=== PATIENT | female | born 1950 | race Caucasian/White ===

== ENCOUNTER 2016-10-14 06:38 | Day surgery (SDC) | payer MEDICARE, MEDICAID ==
[~2016-10-14 06:38] MED LIST: Buffered Lidocaine 1% SYRIN* 3 ML/SYR SYRINGE INTRADERM ONE; Sodium Citrate/Citric Acid* 15 ML UDC PO ONE
[2016-10-14] MEDS ORDERED: ceFAZolin 2 GM PREMIX(*) 2 GM/50 ML BAG IVPB ONE (06:48)
[2016-10-14] MEDS ORDERED: Sodium Citrate/Citric Acid* 15 ML UDC ONE (06:48)
[2016-10-14] MEDS ORDERED: Bupivacaine 0.25% SDV* 30 ML ONE (07:03)
[2016-10-14] MEDS ORDERED: Lidocaine 1% INJ* 10 MG/ML 30 ML SDV ONE (07:46)
[2016-10-14] MEDS ORDERED: Betamethasone INJ* 6 MG/ML 5 ML VIAL (30 MG) ONE (07:46)
[2016-10-14] MEDS ORDERED: fentaNYL* 50 MCG/ML 2 ML VIAL (100 MCG VIAL) ONE (07:54)
[2016-10-14] MEDS ORDERED: Lidocaine 2% PF * 5 ML VIAL ONE (07:55)
[2016-10-14] MEDS ORDERED: Propofol* 10 MG/ML 20 ML BTL IV PUSH ONE (07:55)
[2016-10-14] MEDS ORDERED: Ketorolac INJ* 30 MG/ML 1 ML VIAL IV PRN (08:24)
[2016-10-14] MEDS ORDERED: Ondansetron INJ* 2 MG/ML VIAL IV PRN (08:24)
[2016-10-14] MEDS ORDERED: fentaNYL* 50 MCG/ML 2 ML VIAL (100 MCG VIAL) IV PRN (08:24)
[2016-10-14] MEDS ORDERED: Ondansetron INJ* 2 MG/ML VIAL ONE (09:47)
[2016-10-14] MEDS ORDERED: Ketorolac INJ* 30 MG/ML 1 ML VIAL ONE (10:10)
[2016-10-14] MEDS ORDERED: DiMENhydriNATE IV* 50 MG/ML VIAL ONE (11:51)
[2016-10-14] MEDS ORDERED: DiMENhydriNATE IV* 50 MG/ML VIAL IV PUSH PRN (11:53)
[2016-10-14 12:50] VITALS: BP 151/79
--- NOTE | 2016-10-14 23:09 | OP ---
DATE OF OPERATION: 10/14/16 - [facility] DATE OF : 48 SURGEON: Segundo Gramajo MD DEVELOPMENTAL MATHEMATICS INSTRUCTOR: CHEYANNE Bay ANESTHESIOLOGIST: Dr. Steen. ANESTHESIA: General. PRE-OPERATIVE DIAGNOSES: 1. 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 2. Right middle, ring and small finger trigger fingers. POST-OPERATIVE DIAGNOSES: 1. 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 2. Right middle, ring and small finger trigger fingers. 3. Full thickness cartilage loss at the scaphotrapezoid joint. OPERATIVE PROCEDURE: 1. Left thumb carpometacarpal arthroplasty with trapeziectomy and split flexor carpi radialis distally based transfer for thumb suspension and tendon interposition at both the scaphotrapezoid joint as well as in the void left by the trapeziectomy. 2. Right middle, ring and small finger trigger finger injections. 3. Left partial trapezoidectomy. INDICATIONS: Ms. Palma is a 66-year-old female who has been having significant left thumb carpometacarpal degenerative joint disease and STT degenerative joint disease pain. She has had nonoperative treatment for quite some time. 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 She desired to have surgery. Recently, she has developed trigger fingers on the right side with mariam triggering at the middle and ring fingers and significant discomfort in the small finger as well. We talked about the risks and benefits. She wanted to proceed with surgical intervention. ESTIMATED BLOOD LOSS: 5 mL. COMPLICATIONS: As expected. FINDINGS: Full thickness cartilage loss of the distal pole of the scaphoid at the scaphotrapezoid articulation. DESCRIPTION OF PROCEDURE: Ms. Palma was seen in the preoperative holding area and the correct site, side and procedure were identified. We came back to the operating room, where anesthesia was induced and she received perioperative antibiotics. The arm was prepped and draped in the usual fashion and a formal timeout was performed. I began prior to draping by cleansing the right palm with alcohol. I then used a 25-gauge needle to inject 0.5 mL of 1% plain lidocaine and 3 mg of betamethasone at the A1 pulleys of the right middle, ring and small fingers. This was uneventful and a Band-Aid was applied. I began on the left by making a longitudinal incision from the base of the thumb metacarpal down towards the radial styloid. It was about a 2 to 3 cm incision. Staying just dorsal to the first dorsal compartment tendons, I raised full thickness flaps to preserve the dorsal sensory nerves of the radial nerve. The radial artery was identified. There was a branch that I ligated and tied off with a 4-0 silk tie. This enabled the rest of the radial artery to be mobilized and retracted proximally and dorsally out of the surgical field. There was quite a dense venous bed underneath the radial artery. This was cauterized with the Bovie. Once I had cauterized this, I used the knife to incise longitudinally the capsule of the scaphotrapezial and trapeziometacarpal joints. Full thickness capsule and subperiosteal flaps were raised volarly and dorsally. I used the [place] blade to release the soft tissue around the trapezium. I then used a rongeur to excise the trapezium in its entirety. With the trapezium excised, I was able to preserve the FCR tendon in the base of the wound. I had my visual merchandising assistant pull quite a bit of traction in the index finger and I put a freer elevator in the scaphotrapezoid joint. I elected for significant cartilage loss and there was indeed full thickness cartilage loss off the distal aspect of the scaphoid and scaphotrapezoid joint. Essentially, it was a bare scaphoid. I, at this point, brought in my osteotome and used the osteotome to excise the most proximal 3-mm trapezoid. This was taken down with one clean wafer of bone. After excising the piece of the trapezoid, I was not able to induce contact between the trapezoid and the distal hole of the scaphoid with axial loading of the index finger in flexion and extension. I then used my drill bits to make a hole from the dorsal radial aspect of the base of the metacarpal down and just at the articular edge of the volar ulnar metacarpal. I sequentially used larger drill bits to get up to the right side hole. Once I had done this, I irrigated out the wound, we turned our attention to the volar forearm. I made a small transverse incision over the distal aspect of the FCR tendon just proximal to the volar flexion crease. The tendon was freed up from the sheath and brought up into the wound where it was split longitudinally and a 26- gauge wire was split pass through the longitudinal split. I then made two more transverse incisions proximally, each about 7 or 8 cm proximal to the prior incision. I release the FCR tendon from its tendon sheath along the entire length of the tendon and freed up any adhesions using the tenotomy scissors. I then used a Shanna to the deliver the 26-gauge wire sequentially into the more proximal wounds until I released the FCR tendon at the musculotendinous junction. I delivered the free tendon tail down into the distal forearm wound. The end of the tendon was freed of any muscle remnants and I used a 3-0 Ethibond suture to secure the proximal aspect of the tendon tail to prevent splitting as I passed into the remaining wounds. With the free tendon tail secured, I used two 26-gauge wires to shuttle the tendon down into the base of the thumb wound through the remaining tendon sheath at the level of the wrist. I then used the wire as a shuttle to pass the free tendon tail up through my drill hole and then back around the intact limb of the FCR tendon. I then tensioned the tendon transfer and sutured the two ends of the intact tendon tail to the free tendon tail to secure the graft. I placed a couple more Ethibond sutures. I then took the remainder of the tendon tail and used the Ethibond suture to create a little tendinous mat, which I used as an interpretation between the scaphoid and the trapezoid. The remainder of the FCR tendon was rolled up and secured with 3-[address] as an interposition in the site of the trapeziectomy. Once I had the tendon interposition in place, it looked very nice and so I went ahead and irrigated out the wound. The flaps were closed with 3-0 Ethibond suture to achieve a watertight seal. I then irrigated out the wound and closed the skin and all the wounds with some 4-0 nylon suture in horizontal mattress fashion. 25 mL of 0.25% plain Marcaine were infiltrated along all the operative wounds and areas. I then dressed all the wounds with Xeroform, 4x4s, sterile Webril and thumb spica splint was placed. Tourniquet was deflated. The arm had been exsanguinated and the tourniquet inflated to 250 mmHg prior to making the first skin incision. The hand pinked up immediately. The patient was then woken up and taken to the recovery room in stable condition. [id number]/[facility] #: [id number] TUAN
== END 2016-10-14 12:51 | disposition home or self-care (01) ==
LOC: OREAST 06:38
PROVIDERS: ATTEND Orthopaedic Surgery Hand Surgery
DX: M18.12 Unilateral primary osteoarthritis of first carpometacarpal joint, left hand (principal); M65.331 Trigger finger, right middle finger; M65.341 Trigger finger, right ring finger; M65.351 Trigger finger, right little finger
CPT/HCPCS: A9270-GY; J0690; J0702; J1240; J1885; J2001; J2405; J2704; J3010

== ENCOUNTER 2017-03-24 08:47 | Day surgery (SDC) | payer MEDICARE ==
[~2017-03-24 08:47] MED LIST changes: +Buffered Lidocaine 0.9% SYRIN* 5 ML/SYR SYRINGE INTRADERM ONE; -Buffered Lidocaine 1% SYRIN* 3 ML/SYR SYRINGE INTRADERM ONE; +Dexamethasone IV* 4 MG/ML 1 ML (4 MG) IV SLOW PU ONE; +Famotidine IV* 10 MG/ML 2 ML (20 mg) IV ONE; -Sodium Citrate/Citric Acid* 15 ML UDC PO ONE
[2017-03-24] MEDS ORDERED: Dexamethasone IV* 4 MG/ML 1 ML (4 MG) ONE (10:04)
[2017-03-24] MEDS ORDERED: ceFAZolin 2 GM PREMIX (*) 2 GM/50 ML BAG IVPB ONE (10:04)
[2017-03-24] MEDS ORDERED: Famotidine IV* 10 MG/ML 2 ML (20 mg) ONE (10:05)
[2017-03-24] MEDS ORDERED: Buffered Lidocaine 0.9% SYRIN* 5 ML/SYR SYRINGE ONE (10:22)
[2017-03-24] MEDS ORDERED: Lidocaine 1% MPF wEPI 200,000* 30 ML SDV ONE (11:12)
[2017-03-24] MEDS ORDERED: Bupivacaine 0.25% SDV* 30 ML ONE (11:12)
[2017-03-24] MEDS ORDERED: Midazolam* 1 MG/ML 2 ML VIAL (2 MG) ONE ×2 (11:30→11:35)
[2017-03-24] MEDS ORDERED: Chloroprocaine 2%* 20 ML VIAL ONE (11:31)
[2017-03-24] MEDS ORDERED: PROCHLORPERAZINE INJ 5 MG/ML 2 ML VIAL IV PRN (12:08)
[2017-03-24] MEDS ORDERED: Ketorolac INJ* 30 MG/ML 1 ML VIAL IV PRN (12:08)
[2017-03-24] MEDS ORDERED: oxyCODONE TAB* 5 MG TAB PO PRN (12:08)
[2017-03-24] MEDS ORDERED: fentaNYL* 50 MCG/ML 2 ML VIAL (100 MCG VIAL) IV PRN (12:08)
[2017-03-24] MEDS ORDERED: HYDROcodone/ACETAMIN 5-325 MG* 1 TAB PO PRN (12:08)
[2017-03-24] MEDS ORDERED: Acetaminophen TAB* 325 MG PO PRN (12:08)
[2017-03-24] MEDS ORDERED: Ondansetron INJ* 2 MG/ML VIAL IV PRN (12:08)
[2017-03-24 13:54] VITALS: BP 148/93
[2017-03-24] MEDS ORDERED: Acetaminophen TAB* 325 MG ONE (14:06)
[2017-03-24] MEDS ORDERED: Ibuprofen TAB* 600 MG ONE (14:12)
--- NOTE | 2017-03-25 05:58 | OP ---
DATE OF OPERATION: 03/24/17 - [facility] DATE OF : 48 ATTENDING SURGEON: Sita Vasques MD. DESIGN AND SALES CONSULTANT: CHEYANNE Huber. An paralegal assistant was needed for the entirety of the case to help with positioning and retraction, and was utilized throughout all portions of the case. ANESTHESIOLOGIST: Dr. Campos Alvarado. ANESTHESIA: Spinal anesthesia with local MAC. PRE-OP DIAGNOSIS: Left knee grade 3 ACL rupture with medial and lateral meniscal tears. POST-OP DIAGNOSES: 1. Left knee grade 3 ACL rupture with medial and lateral meniscal tears. 2. Mild chondrosis of the patella and medial femoral condyle. OPERATIVE PROCEDURE: 1. Left knee arthroscopy with partial medial meniscectomy. 2. Partial lateral meniscectomy. 3. Plica excision. 4. Chondroplasty. COMPLICATIONS: None. ESTIMATED BLOOD LOSS: Minimal. INDICATIONS: Brittny Palma is a 67-year-old female who sustained an injury to her knee initially in July and then again in February when she experienced catching and locking-type of pain. She was diagnosed with an ACL rupture and medial and lateral meniscal tears. After extensive discussions, risks, and benefits of operative versus nonoperative treatment, she has elected to proceed with operative treatment. Risks and benefits were discussed at length that included, but not limited to bleeding, infection, damage to nerves, vessels, surrounding structures, wound nonhealing, persistent pain, need for surgery, scarring, stiffness, incomplete relief of symptoms, risks of anesthesia , and risk of DVT. She has elected to proceed. DESCRIPTION OF PROCEDURE: The patient was greeted in the preoperative area by the attending surgeon. Correct extremity was marked, consent was confirmed. The patient was brought back to the operating suite where she was placed in a supine position on the operating room table. She underwent spinal anesthesia after which she was appropriately positioned in the bed. A nonsterile tourniquet was placed proximally on the left leg. The lateral post was positioned. The left leg was prepped and draped in the usual sterile fashion with chlorhexidine soap, alcohol wipe, and a final prep of ChloraPrep. After appropriate surgical pause, indicating site, side, position, and administration of antibiotics, the knee was intra-articularly injected with 1% lidocaine with epi. The left anterolateral portal was made sharply with the 11 blade. The scope was positioned in the suprapatellar pouch of the knee. The patellofemoral joint had grade 0 changes. The medial and lateral gutter were without loose body or debris. There was abundant synovitis. There was evidence of chondral wear from the anteromedial portion of the medial femoral condyle. There was also a plica present which was likely causing this irritation. There was a flipped portion of the body of the medial meniscus into the medial femoral condyle. She likely had been weightbearing on this piece. This appeared to be a [id number]-lnic tear. This had a large bulbous end and was in the white white zone. The anterior medial portal was made with an 18-gauge needle for localization. The probe was brought into the joint and the flap was examined. The eyal and biters were used to debride this flap back to a stable layer. The weightbearing portions of the medial femoral condyle and medial tibial plateau had grade 0-1 changes. There was erythema and chondral fraying about the medial edge of the medial femoral condyle. This was debrided back using the shaver. Once the chondroplasty was completed, attention was directed to the notch. She had a grade 3 rupture of the ACL with scarring of the tibial stump to the PCL. The lateral compartment was examined. She had an unstable tear of the posterior aspect of the lateral meniscus. There is bony degeneration present. This was not a repairable tear. This was debrided back using eyal and biters to stable area. There were grade 1 and 2 changes of the lateral femoral condyle. Finally, attention was directed to the medial plica. This is to be back using eyal and biters as well as electrocautery device. Final images were obtained. The knee was thoroughly lavaged and irrigated. The portals were lavaged with sterile saline. The portals were then closed with 3-0 nylon in interrupted fashion. Sterile dressings were applied. The knee was injected with 0.25% Marcaine plain. A Cryo/Cuff was applied. Postoperative plan: She will be on crutches for 3-5 days. She will have range of motion as tolerated. She will be weightbearing as tolerated. Shell be discharged on pain medication. DVT prophylaxis was considered but deferred due to her previous personal or family history. I will see the patient back in 10- 14 days. [id number]/[facility] #: [id number] TUAN
== END 2017-03-24 14:29 | disposition home or self-care (01) ==
LOC: OREAST 08:47
PROVIDERS: ATTEND Orthopaedic Surgery
DX: S83.512A Sprain of anterior cruciate ligament of left knee, initial encounter (principal); S83.282A Other tear of lateral meniscus, current injury, left knee, initial encounter; S83.232A Complex tear of medial meniscus, current injury, left knee, initial encounter; M22.2X2 Patellofemoral disorders, left knee; X58.XXXA Exposure to other specified factors, initial encounter; M65.862 Other synovitis and tenosynovitis, left lower leg; M67.52 Plica syndrome, left knee
CPT/HCPCS: A9270-GY; J0690; J1100; J2001; J2250; J2400

== ENCOUNTER → 2019-01-19 13:18 | Day surgery (SDC) | payer MEDICARE ==
[~2019-01-19 13:18] MED LIST changes: +Artificial Tear OPHTH.OINT* 3.5 GM ONE; -Buffered Lidocaine 0.9% SYRIN* 5 ML/SYR SYRINGE INTRADERM ONE; +Buffered Lidocaine 1% SYRIN* 1 ML/SYRINGE INTRADERM ONE; -Dexamethasone IV* 4 MG/ML 1 ML (4 MG) IV SLOW PU ONE; -Famotidine IV* 10 MG/ML 2 ML (20 mg) IV ONE; +Lactated Ringers 1000 ML Bag* 1,000 ML IV SCH; +Lidocaine 1% w EPI 1:100,000* MDV 20 ML VIAL ONE; +Lidocaine 2% PF * 5 ML VIAL ONE; +Methylene Blue 0.5 %* 50 MG/10 ML AMP IV ONE; +Midazolam* 1 MG/ML 2 ML VIAL (2 MG) ONE; +Naloxone* 0.4 MG/ML 1 ML VIAL IV PRN; +Petrolatum 5 GM* 5 GM PACKET ONE; +Propofol* 10 MG/ML 20 ML BTL ONE; +[UNRECOGNIZED DRUG - OTHER] ONE; +ceFAZolin 2 GM in NS PREMIX(*) 2 GM/100 ML BAG IVPB ONE; +fentaNYL* 50 MCG/ML 2 ML VIAL (100 MCG VIAL) ONE
[2019-01-19 17:52] VITALS: BP 149/90
== END | disposition home or self-care (01) ==
LOC: OR 13:18
PROVIDERS: ATTEND Plastic Surgery
DX: C44.01 Basal cell carcinoma of skin of lip (principal); R07.9 Chest pain, unspecified; F41.9 Anxiety disorder, unspecified
CPT/HCPCS: 88305; 88331; 88332; 93005; A9270-GY; J0690; J2250; J2704; J3010